=== PATIENT | female | born 1980 | race Two or more races ===

== ENCOUNTER 2025-08-27 15:30 | Outpatient (RCR) | payer MEDICAID, SELFPAY ==
--- NOTE | 2025-08-16 09:06 | PT.OIERPT ---
PT OP Initial Eval Patient Information Outpatient Physical Therapy Treatment Date: 08/16/25 Visit Reasons: Low back pain Medical Diagnosis: M54.50 Treatment Dx #1: LBP with radiculopathy Start of Care: 08/16/25 Date of Onset: 3 yrs ago Smoking Status Smoking Status: Never smoker Initial Assessment Subjective: Pt is 45 yr old female who reports LBP x3 yrs and R LE pain x1 month. Increased pain with sitting, bending and twisting and she describes the pain as shooting shocks in the LB and glute and the lateral calf is numb. 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 PMH: gastric bypass Imaging: Xray report of LB in EMR Pt goal: to get rid of the pain Objective: ? Trunk ArOM: ? B SB 50% of normal with pain ? Extension: 20% with pain around L4-5, L5-S1 ? Flexion: 15 from floor with LBP ? B rotation: 60% with pain ? TTP: moderate paraspinals L5-S1 ? Neuro: R SLR: positive Antalgic gait pattern Assessment: ? Pt presents with trunk flexion and extension sensitivity and overlying myofascial pain ? and TTP around L5-S1 consistent with ? lower lumbar disc bulge(s) with radiculopathy. Pt requires skilled therapy in order to decrease ? pain and improve sitting/standing tolerance and has fair rehab potential. Short Term and Nursing Home Goals 1. Ind with HEP ? 2. Improved sitting/standing tolerance to 30 minutes with <=4/10 LBP ? 3. Decreased lower paraspinal TTP from mod to min 4. Improved HH chore tolerance to at least 30 minutes with <=3/10 LBP and no ?increase in LE ssx ? Treatment Plan ?1. Manual therapy ? 2. Therex ? 3. Modalities as indicated, moist heat, ice, estim, mechanical traction Frequency and Duration: 1-2x a week for 4 Rx sessions per provider order Certification Dates: 08/16/25 to 10/16/25 Procedure Charges OP PT Eval Mod Complex 30 minutes: Yes
--- NOTE | 2025-08-21 18:07 | PT.ODAYNRPT ---
PT Outpatient Daily Note OP Daily Note Outpatient Physical Therapy Treatment Date: 08/21/25 Visit Reasons: Low back pain Subjective: High LBP today Objective: See F/S for therex MT: STM L/S x7' Assessment: High TTP of L/S with MT Plan: Continue per POC Length of Time (minutes) of Treatment: 30 Minutes Procedure Charges Therapeutic Exercise 30 minutes: Yes
--- NOTE | 2025-08-23 10:32 | PT.ODAYNRPT ---
PT Outpatient Daily Note OP Daily Note Outpatient Physical Therapy Treatment Date: 08/23/25 Visit Reasons: Low back pain Subjective: Some LBP relief after last visit Objective: See F/S for therex MT: STM L/S x7' Assessment: Mod/High TTP of L/S with MT Plan: Continue per POC Length of Time (minutes) of Treatment: 30 Minutes Procedure Charges Therapeutic Exercise 30 minutes: Yes
--- NOTE | 2025-08-27 18:11 | PT.ODAYNRPT ---
PT Outpatient Daily Note OP Daily Note Outpatient Physical Therapy Treatment Date: 08/27/25 Visit Reasons: Low back pain Subjective: Some LBP relief after last visit and after traction today but when she goes to work the LBP returns Objective: See F/S for therex MT: STM L/S x7' Mech traction L/S x7' at 40 lbs Assessment: Mod/High TTP of L/S with MT. Temporary relief after therapy visits Plan: Continue per POC Length of Time (minutes) of Treatment: 30 Minutes Procedure Charges Therapeutic Exercise 30 minutes: Yes
--- NOTE | 2025-10-02 10:47 | PTNOTE_ITS ---
PT OP Progress/Discharge Note Date of Service: 10/02/25 Progress Note/DC Note Progress Note/Discharge Note: DC Note Patient Information Visit Reasons: Low back pain Service Continue Service or Discharge: Discharge Discharge Date: 10/02/25 Status Assessment: Pt attended the initial evaluation and 3 Rx visits and no showed x2 and never returned or called to schedule a follow-up appointment within the past 30 days, which is not in compliance with attendance policy. Pt?s attendance is not cons istent enough to make progress with goals. Thank you for your referrals. Plan: D/C
== END 2025-09-14 23:59 | disposition home or self-care (01) ==
LOC: CPTX 15:30
PROVIDERS: PCP Family Medicine; Referring Provider Family Medicine; Visit Provider Family Medicine
DX: M54.16 Radiculopathy, lumbar region (principal)
CPT/HCPCS: 97110; 97162